=== PATIENT | male | born 1960 | race Caucasian/White ===

== ENCOUNTER 2017-01-06 00:55 | Inpatient (IN) | payer OTHER ==
--- NOTE | ~2017-01-06 | HP ---
History And Physical [address] [place]. [address] NAME: MARTHA HUMPHREY : 62 STATUS : ADM Jorge PAT#: [id number] AGE: 56 ADM/REG DATE : 01/06/17 MR#: [id number] REPORT SERV DATE: 01/06/17 DICTATED BY: ELIAS BROWN DATE: 01/06/17 REPORT STATUS : Draft TRANSCRIBED BY: MODL DATE: 01/06/17 DATE OF ADMISSION: 01/06/2017 HISTORY OF PRESENT ILLNESS: Mr. Martha Humphrey is a 56-year-old man with known history of ischemic heart disease with ischemic cardiomyopathy, prior PCI, prior bypass grafting and a dual-chamber defibrillator. He has a background of COPD and former smoking. He states that for the last week he has had difficulties with his allergies. He has had cough that has been progressive with production of clear sputum. He has had some progressive shortness of breath. Yesterday, he was burning some brush, had significant smoke exposure and that evening became acutely short of breath and had activated emergency medical services. EMS arrived and obtained an ECG with extensive artifact with ST-segment elevation in the anterior leads in the context of Q-waves and those leads. There was a question of whether he has had a STEMI. He was brought to the emergency room. Troponin was 0.04. Repeat ECG was unchanged and overall somewhat consistent with previous tracings, and then patient felt not to have STEMI but it was in fact anterior septal VA, old. Regardless, the patient was admitted to Cardiology overnight for further evaluation. Chest x-ray shows dual-chamber defibrillator and cardiomegaly without acute parenchymal abnormalities. Official read is not completed yet. The patient reports no orthopnea or PND and reports absolutely no chest pain. PAST MEDICAL HISTORY: Coronary artery disease, previous PCI, previous bypass grafting, known ischemic cardiomyopathy, ejection fraction 25% to 30%. The patient has chronic systolic heart failure, hypertension, hyperlipidemia, dual-chamber defibrillator, former smoker, and COPD. HOME MEDICATIONS: Listed in [facility] home medicine form and reviewed. ALLERGIES: NONE KNOWN. SOCIAL HISTORY: Former smoker. FAMILY HISTORY: Reviewed and noted for some members with cardiac disease. REVIEW OF SYSTEMS: As per the HPI. Otherwise, all other review of systems is negative. PHYSICAL EXAMINATION: VITAL SIGNS: Blood pressure of 152/74, pulse 62, respiratory rate is 18. The patient is afebrile. GENERAL: Appears stated age, no distress. EYES: Sclerae anicteric, no arcus senilis. MOUTH: Oral mucosa moist, lips acyanotic. NECK: Jugular venous pressure normal, no carotid bruits. LUNGS: Diffusely diminished breath sounds. Slightly prolonged expiratory phase and scattered wheezes. History And Physical [address] [address] NAME: MARTHA HUMPHREY : 62 STATUS : ADM Jorge PAT#: [id number] AGE: 56 ADM/REG DATE : 01/06/17 MR#: [id number] REPORT SERV DATE: 01/06/17 DICTATED BY: ELIAS BROWN DATE: 01/06/17 REPORT STATUS : Draft TRANSCRIBED BY: APOLINAR DATE: 01/06/17 CARDIAC: Regular rate and rhythm, no murmurs, gallops or rubs. ABDOMEN: Soft, nondistended, nontender. EXTREMITIES: No edema. SKIN: Warm and dry. NEURO/PSYCH: Alert and oriented, nonfocal, mood appropriate. DATA: Sodium 142, potassium 4.1, creatinine 1.1. Hemoglobin 14.3. Troponin 0.04. BNP 463. ECG is as described. IMPRESSION: 1. Cough, shortness of breath, wheezes, and presentation to the ER with hypoxia requiring nasal cannula O2. 2. Coronary artery disease with previous bypass grafting, ischemic cardiomyopathy, and dual-chamber defibrillator. 3. Chronic obstructive pulmonary disease and former smoker. 4. Peripheral vascular disease. 5. Increased BNP. RECOMMENDATIONS: 1. Repeat troponin. ECG does not appear to be acute coronary syndrome. 2. Given hypoxia without dramatic changes on chest x-ray, we will obtain CTA chest to ensure the patient not had a pulmonary embolism. Also this would allow further delineation of the lung parenchyma for other causes of shortness of breath. 3. Bronchodilator protocol. 4. Query whether the patient is actually having a COPD exacerbation. We will ask the hospitalist to assist and clarify about the patient's outpatient COPD treatment with inhalers and/or steroids. 5. In terms of elevated BNP, hold on Lasix for now as we would be administering IV contrast and reassess lung parenchymal findings on CT. WILLIAMS/APOLINAR Elias Brown M.D. / [id number] CC: Brittany Mendosa Crystal
--- NOTE | ~2017-01-06 | CN ---
Consultation Report [facility] [address] [place]. [address] NAME: BRAULIO HUMPHREY : 62 STATUS : ADM Jorge PAT#: [id number] AGE: 56 ADM/REG DATE : 01/06/17 MR#: [id number] REPORT SERV DATE: 01/06/17 DICTATED BY: CARMELINA TONY DATE: 01/06/17 REPORT STATUS : Draft TRANSCRIBED BY: MODL DATE: 01/06/17 CONSULTATION DATE OF CONSULTATION: 01/06/2017 REASON FOR CONSULTATION: COPD, shortness of breath, and wheezing. The history is obtained from the patient and review of records on [employer] and [employer]. HISTORY OF PRESENT ILLNESS: Mr. Humphrey is a 56-year-old white male, who was triaged in the emergency room on 01/06/2017 at 0055 hours for possible STEMI. He had some shortness of breath and chest tightness. An EKG showed what was thought to be some new ST-segment elevation. His troponin was 0.04. A repeat EKG was unchanged. He was placed on observation with Cardiology. He has been seen by Dr. Brown, who questioned whether his presentation is actually a COPD exacerbation. The patient has at least a five-day history of some nasal drainage and cough with clear sputum. He has noted some wheezing. He has been clearing some brush and burning brush at his home. He has multiple pine trees. Last night, he had increasing shortness of breath for which he came to the emergency room, as described. He has not had any earache, sore throat, fever, or chills. He has not had any nausea, vomiting, abdominal pain, diarrhea, or dysuria. He carries a diagnosis of COPD in his old records, but it is not clear that he has ever had formal pulmonary function testing. He was a past smoker, but has not smoked in the past one and a half years. PAST MEDICAL HISTORY: His medical history is significant for: 1. Multi-vessel coronary disease with previous stenting in 10/2004, 05/2005, and 05/2007. He had CABG x2 in 02/2015, for left main disease. 2. Ischemic cardiomyopathy with EF of 20%. A cardiac cath in 02/2015. 3. ICD placement in 05/2015. 4. Hypertension. 5. Peripheral vascular disease with multiple PCIs and surgeries by [facility] Surgery, Dr. Moon and Dr. Meyer. He has no history of cancer, venous thromboembolic disease, diabetes, thyroid disease, previous stroke, hepatitis, pancreatitis, gastrointestinal bleeding, or known systemic rheumatic disease. ALLERGIES OR INTOLERANCE: None. HOME MEDICATIONS: Aspirin 325 mg daily, Coreg 12.5 mg twice daily, Klonopin 0.25 mg at Consult[address] Report [facility] [address] [place]. [address] NAME: BRAULIO HUMPHREY : 62 STATUS : ADM Jorge PAT#: [id number] AGE: 56 ADM/REG DATE : 01/06/17 MR#: [id number] REPORT SERV DATE: 01/06/17 DICTATED BY: CARMELINA TONY DATE: 01/06/17 REPORT STATUS : Draft TRANSCRIBED BY: APOLINAR DATE: 01/06/17 bedtime as needed for insomnia, Zestril 2.5 mg daily, Claritin 10 mg as needed, nitroglycerin 0.4 mg sublingually as needed, and Crestor 20 mg at bedtime. SOCIAL HISTORY: He is single. No children. When his father , he moved back in with his mother, who is elderly, to care for her in [place]. No alcohol use. Tobacco, see above. He is on disability. FAMILY HISTORY: Sister with breast cancer. Mother with liver cancer "in remission," also has a pancreatic mass. Father with pancreatic cancer. REVIEW OF SYSTEMS: Complete, done with the patient in room 6109 and negative except as noted above. PHYSICAL EXAMINATION: VITAL SIGNS: O2 saturation 97% on 2 L, blood pressure 141/78, temp 98, pulse is 59, and respirations 16. GENERAL: He is older than stated age. He is not short of breath, talking in bed, at rest on O2. SKIN: Warm and dry. No rash, petechiae, or ecchymoses. NODES: No palpable axillary, cervical or inguinal. HEENT: Atraumatic with symmetric facies. Lids, sclerae, and conjunctivae negative. No xanthelasma, scleral icterus, or conjunctival petechiae or injection. Pupils are equal, round, and reactive to light. Extraocular movements are intact. External ears are negative. Hearing is intact. Ear canals and TMs normal. Nose negative. Anterior nares with some clear mucus. Lips, gums, mucosa, hard and soft palates, posterior pharynx, and tongue negative. NECK: No visible JVD or asymmetry. No palpable mass, goiter or tenderness. Trachea midline. Nontender. LUNGS: Diminished breath sounds bilaterally. With forced expiration, there is wheezing. Normal rales. CHEST: Left upper chest device. HEART: Distant heart tones. Regular rhythm. No audible murmur, gallop, rub, or click. Pulses 2+ and symmetric radial, carotid, femoral, and posterior tibial. ABDOMEN: Protuberant, but nontender. No guarding, rebound, or rigidity. Cannot feel liver, spleen, kidneys, or aortic pulsation. EXTREMITIES: Upper and lower extremities: No cyanosis, clubbing, or edema. NEUROLOGIC: Mental status normal. Cranial nerves II through XII normal. Deep tendon reflexes: Symmetric triceps, biceps, knee jerk; absent ankle jerks. Sensory intact to touch. PSYCHIATRIC: Appropriate mood and affect. DATA: Sodium 142, potassium 4.1, chloride 104, CO2 of 29, BUN 17, creatinine 1.10, glucose 105, calcium 8.4, mag 2.2. Troponin 0.02, had been 0.04. BNP is 463.8. White count is 7.7, hemoglobin 14.3, and platelets 198,000. Consultation Report [address] [address] NAME: BRAULIO HUMPHREY : 62 STATUS : ADM Jorge PAT#: [id number] AGE: 56 ADM/REG DATE : 01/06/17 MR#: [id number] REPORT SERV DATE: 01/06/17 DICTATED BY: CARMELINA TONY DATE: 01/06/17 REPORT STATUS : Draft TRANSCRIBED BY: [facility] DATE: 01/06/17 Chest x-ray: Reviewed. No acute cardiopulmonary disease. CTA of the chest: Per Radiology, no CT evidence of pulmonary embolus, minor subsegmental atelectasis, right base. Previous CAD and device. EKG: Q-waves V1 through V4. Diffuse ST-segment changes. ASSESSMENT: This is a 56-year-old white male, with probable acute exacerbation of chronic obstructive pulmonary disease in the setting of the above-mentioned comorbidities as listed. PLAN: Begin IV steroids, DuoNeb, Brovana, and budesonide. Continue O2, check procalcitonin, CRP and liver tests. Follow up in a.m. Thank you for the consultation. DD/MODL Carmelina Tony M.D. / [id number] CC: Brittany Mendosa [facility]
[~2017-01-06 00:55] MED LIST: ASAB PO; COREG12 PO; COREG6 PO; CRESTOR20 MG PO; CRESTOR40 MG PO; KLONO5 PO; LOP25 PO; PCET PO; PEPCID40 MG PO; PLAVIX PO; PRIN5 PO; ULTRAM50 PO; V5 PO; VIB100 PO; ZESTRIL2.5 MG PO
[2017-01-06 01:34] LABS: BASOPHILS 0.8 %; BASOPHILS ABSOLUTE 0.06 10/3/uL (0.0-0.16); EOSINOPHILS ABSOLUTE 0.46 10/3/uL (0.0-0.53); ER CBC TAT 0 Hrs 09 Mins; HEMOGLOBIN 14.3 g/dL (13.6-17.8); IMMATURE GRANULOCYTES 0.1 %; IMMATURE GRANULOCYTES ABSOLUTE 0.01 10/3/uL (0.0-0.11); LYMPHOCYTES 22.1 %; LYMPHOCYTES ABSOLUTE 1.69 10/3/uL (0.67-4.30); MEAN CORPUSCULAR HEMOGLOB 31.2 pg (26.0-34.0); MEAN CORPUSCULAR VOLUME 91.7 fL (80-100); MEAN PLATELET VOLUME 10.2 fL (9.2-13.0); MONOCYTES 9.8 %; MONOCYTES ABSOLUTE 0.75 10/3/uL (0.21-1.20); NEUTROPHILS 61.2 %; NEUTROPHILS ABSOLUTE 4.68 10/3/uL (2.02-8.40); PLATELET COUNT 198 10/3/uL (150-400); RBC DISTRIBUTION WIDTH 13.7 % (12.0-16.0); RED CELL COUNT 4.58 10/6/uL (4.7-6.1); WHITE BLOOD CELLS 7.7 10/3/uL (4.5-10.5)
[2017-01-06 01:35] LABS: MANUAL DIFF NO %
[2017-01-06 01:42] LABS: INTERNATIONAL NORMAL RATI 1.2 UNITS (-); PARTIAL THROMBO TIME 32.9 SEC (22.5-37.2); PROTIME (NOT ORD) 15.2 SEC (12.0-14.5)
[2017-01-06 01:50] LABS: BUN (BLOOD UREA NITROGEN) 17 MG/DL (6-23); CALCIUM, SERUM 8.4 MG/DL (8.5-10.4); CHEST PAIN PROFILE TAT 0 Hrs 25 Mins; CHLORIDE, SERUM 104 MMOL/L (96-112); CO2 (CARBON DIOXIDE) 29 MMOL/L (24-34); GFR AFRICAN AMERICAN 87 ML/MIN (>=60); GFR NON AFRICAN AMERICAN 75 ML/MIN (>=60); GLUCOSE, SERUM 105 MG/DL (60-99); POTASSIUM, SERUM 4.1 MMOL/L (3.5-5.3); SODIUM, SERUM 142 MMOL/L (135-148); TROPONIN I 0.04 NG/ML (<0.05)
[2017-01-06] MEDS ORDERED: ZESTRIL2.5 MG PO (03:18)
[2017-01-06] MEDS ORDERED: KLONO5 PO (03:18)
[2017-01-06] MEDS ORDERED: CRESTOR20 MG PO (03:18)
[2017-01-06] MEDS ORDERED: COREG25 PO (03:18)
[2017-01-06] MEDS ORDERED: ASAEC PO (03:19)
[2017-01-06] MEDS ORDERED: CLARIT10 PO (03:21)
[2017-01-06] MEDS ORDERED: NITROSTAT0.4 MG SL (03:21)
[2017-01-06 20:33] LABS: ALBUMIN 3.8 G/DL (3.5-5.0); C-REACTIVE PROTEIN 7.2 MG/L (<8.0); SGOT(AST) 38 U/L (5-40); SGPT(ALT) 40 U/L (5-65); TOTAL BILIRUBIN 0.3 MG/DL (0-1.2); TOTAL PROTEIN 7.1 G/DL (6.0-8.5)
[2017-01-06 20:35] LABS: ALKALINE PHOSPHATASE 71 U/L (45-117); DIRECT BILIRUBIN < 0.1 MG/DL (0.0-0.4); INDIRECT BILIRUBIN(NOT ORDER) 0.2 MG/DL (0.1-0.9)
[2017-01-06 21:16] LABS: PROCALCITONIN < 0.05 ng/mL (<0.5)
[2017-01-07 05:38] LABS: BUN (BLOOD UREA NITROGEN) 14 MG/DL (6-23); CALCIUM, SERUM 8.7 MG/DL (8.5-10.4); CHLORIDE, SERUM 104 MMOL/L (96-112); CO2 (CARBON DIOXIDE) 25 MMOL/L (24-34); CREATININE 1.04 MG/DL (0.70-1.30); GFR AFRICAN AMERICAN 93 ML/MIN (>=60); GFR NON AFRICAN AMERICAN 80 ML/MIN (>=60); POTASSIUM, SERUM 4.2 MMOL/L (3.5-5.3); SODIUM, SERUM 139 MMOL/L (135-148)
[2017-01-07 05:42] LABS: GLUCOSE, SERUM 148 MG/DL (60-99)
[2017-01-08 05:43] LABS: BASOPHILS 0.2 %; BASOPHILS ABSOLUTE 0.03 10/3/uL (0.0-0.16); EOSINOPHILS 0.1 %; EOSINOPHILS ABSOLUTE 0.02 10/3/uL (0.0-0.53); HEMATOCRIT 44.7 % (40.0-51.0); HEMOGLOBIN 15.6 g/dL (13.6-17.8); IMMATURE GRANULOCYTES 0.4 %; IMMATURE GRANULOCYTES ABSOLUTE 0.06 10/3/uL (0.0-0.11); LYMPHOCYTES 14.4 %; LYMPHOCYTES ABSOLUTE 2.41 10/3/uL (0.67-4.30); MEAN CORPUS HGB CONC 34.9 g/dL (32.0-36.0); MEAN CORPUSCULAR VOLUME 91.6 fL (80-100); MEAN PLATELET VOLUME 10.5 fL (9.2-13.0); MONOCYTES 9.8 %; MONOCYTES ABSOLUTE 1.64 10/3/uL (0.21-1.20); NEUTROPHILS 75.1 %; NEUTROPHILS ABSOLUTE 12.62 10/3/uL (2.02-8.40); PLATELET COUNT 254 10/3/uL (150-400); RBC DISTRIBUTION WIDTH 13.7 % (12.0-16.0); RED CELL COUNT 4.88 10/6/uL (4.7-6.1)
[2017-01-08 05:44] LABS: MANUAL DIFF NO %; WHITE BLOOD CELLS 16.8 10/3/uL (4.5-10.5)
[2017-01-08 05:57] LABS: CHLORIDE, SERUM 108 MMOL/L (96-112); CO2 (CARBON DIOXIDE) 23 MMOL/L (24-34); CREATININE 1.15 MG/DL (0.70-1.30); GFR AFRICAN AMERICAN 83 ML/MIN (>=60); GFR NON AFRICAN AMERICAN 71 ML/MIN (>=60); GLUCOSE, SERUM 136 MG/DL (60-99); POTASSIUM, SERUM 3.8 MMOL/L (3.5-5.3); SODIUM, SERUM 140 MMOL/L (135-148)
[2017-01-08 05:59] LABS: BUN (BLOOD UREA NITROGEN) 21 MG/DL (6-23)
[2017-01-08] MEDS ORDERED: P20 PO (16:28)
[2017-01-08] MEDS ORDERED: COMBIVENT RESPIM4 GM INH (16:30)
[2017-07-16] MEDS ORDERED: L20 PO (12:08)
== END 2017-01-08 17:26 | disposition home or self-care (01) | DRG 191 ==
LOC: ER 00:55 → 6NO 04:00
PROVIDERS: Emergency Medicine; Internal Medicine Cardiovascular Disease
DX: J44.1 Chronic obstructive pulmonary disease with (acute) exacerbation (principal); J84.9 Interstitial pulmonary disease, unspecified; I10 Essential (primary) hypertension; R09.02 Hypoxemia; I25.5 Ischemic cardiomyopathy; Z95.810 Presence of automatic (implantable) cardiac defibrillator; I73.9 Peripheral vascular disease, unspecified; I25.10 Atherosclerotic heart disease of native coronary artery without angina pectoris; Z95.1 Presence of aortocoronary bypass graft; Z87.891 Personal history of nicotine dependence; Z95.5 Presence of coronary angioplasty implant and graft; Z79.82 Long term (current) use of aspirin; Z79.891 Long term (current) use of opiate analgesic
CPT/HCPCS: 71010; 71275; 80048; 80076; 83735; 83880; 84145; 84484; 85025; 85610; 85730; 86140; 93005; 94640; 99285; A9270-GY; J2930; Q9967